=== PATIENT | male | born 1970 | race Caucasian/White ===

== ENCOUNTER 2017-05-14 17:43 | Observation (INO) | payer OTHER ==
[2017-05-14] MEDS ORDERED: methylPREDNISolone SOD SUCCI 125 MG/2 ML VIAL IV STA (17:56)
[2017-05-14] MEDS ORDERED: IPRATROPIUM 0.5 MG/2.5 ML NEBU INHALATION STA (17:56)
[2017-05-14] MEDS ORDERED: ALBUTEROL NEBULIZED 2.5 MG/3 ML INHALATION STA (17:56)
[2017-05-14] MEDS ORDERED: SODIUM CHLORIDE 0.9% 1,000 ML IV STA ×2 (17:56)
--- NOTE | 2017-05-14 18:00 | ED ---
General Adult HPI - General Chief complaint: Shortness of Breath Stated complaint: ASTHMA Time Seen by Provider: 05/14/17 17:53 Source: patient, family, RN notes reviewed, old records reviewed Mode of arrival: wheelchair Limitations: no limitations - History of Present Illness Initial comments: 46-year-old male with past medical history asthma presents with 12 hour history of cough. Patient has had worsening cough and dyspnea throughout the day today. He states yesterday he was fine. He is also had myalgias and fever. Patient has known sick contact with patient with influenza B. Denies any vomiting or diarrhea. Denies runny nose or sore throat. Denies any chest pain. - Related Data Home Medications Medication Instructions Recorded Confirmed Atorvastatin [Lipitor] 10 mg PO HS 07/16/15 05/14/17 HYDROcodone/APAP 10-325MG [Galt 1 tab PO BID PRN 05/14/17 05/14/17 10-325] Unknown Inhaler 1 puff INHALATION DIRECTED PRN 05/14/17 05/14/17 guaiFENesin [Mucinex] 600 mg PO BID PRN 05/14/17 05/14/17 Allergies Allergy/AdvReac Type Severity Reaction Status Date / Time No Known Allergies Allergy Verified 05/14/17 18:30 Review of Systems ROS Statement: Those systems with pertinent positive or pertinent negative responses have been documented in the HPI. ROS Other: All systems not noted in ROS Statement are negative. Past Medical History Past Medical History: Asthma, Hyperlipidemia Additional Past Medical History / Comment(s): chronic back pain History of Any Multi-Drug Resistant Organisms: None Reported Past Surgical History: Back Surgery, Cholecystectomy, Orthopedic Surgery Additional Past Surgical History / Comment(s): back 4 screws/2 rods, left rotator cuff, sinus sx Additional Past Anesthesia/Blood Transfusion Reaction / Comment(s): states "takes a long time to wake up" Past Psychological History: No Psychological Hx Reported Smoking Status: Former smoker Past Alcohol Use History: None Reported Past Drug Use History: None Reported - Past Family History Mother Family Medical History: Unable to Obtain Additional Family Medical History / Comment(s): PT ADOPTED General Exam Limitations: no limitations General appearance: alert, in no apparent distress Head exam: Present: atraumatic, normocephalic Eye exam: Present: normal appearance, PERRL ENT exam: Present: mucous membranes dry Neck exam: Present: normal inspection. Absent: tenderness, meningismus Respiratory exam: Present: wheezes, decreased breath sounds, prolonged expiratory. Absent: accessory muscle use Cardiovascular Exam: Present: normal rhythm, tachycardia GI/Abdominal exam: Present: soft. Absent: distended, tenderness Extremities exam: Present: normal inspection, full ROM, normal capillary refill. Absent: pedal edema Back exam: Present: normal inspection Neurological exam: Present: alert, oriented X3, CN II-XII intact. Absent: motor sensory deficit Psychiatric exam: Present: normal affect, normal mood Skin exam: Present: warm, dry, intact Course Vital Signs 05/14/17 05/14/17 05/14/17 17:46 18:04 18:10 Temperature 101.3 F H 101.9 F H Pulse Rate 130 H 112 H 111 H Respiratory 24 16 Rate Blood Pressure 150/81 121/83 O2 Sat by Pulse 98 96 Oximetry 05/14/17 05/14/17 05/14/17 18:26 18:54 20:05 Temperature 98.0 F 98.6 F Pulse Rate 108 H 108 H 100 Respiratory 16 16 Rate Blood Pressure 133/72 120/75 O2 Sat by Pulse 94 L 95 Oximetry EKG Findings - EKG Comments: EKG Findings:: EKG shows sinus tachycardia, ventricular rate 119, WV interval 154, castration 80, QTC 436, no acute signs of ischemia. Medical Decision Making - Medical Decision Making 46-year-old presenting with cough and dyspnea and fever. On examination patient has decreased air entry, and end expiratory wheeze. He does have history of asthma. He is also tachycardic and febrile. White blood cell count normal 7.9, hemoglobin stable 15.7, R to the normal limits, troponin is negative , influenza negative. Chest x-ray shows left lower lobe pneumonia. Patient did have recent car ride in atraumatic right lower extremity pain, therefore CT angiography is obtained. CT angiography is negative for pulmonary embolism Patient has persistent cough and dyspnea. Oxygen saturation in the low 90s on room air. He will be admitted for further treatment of asthma exacerbation, community acquired pneumonia. - Lab Data Result diagrams: 05/14/17 17:50 05/14/17 17:50 Lab Results 05/14/17 05/14/17 05/14/17 Range/Units 17:50 17:50 17:50 WBC 7.9 (3.8-10.6) k/uL RBC 5.46 (4.30-5.90) m/uL Hgb 15.7 (13.0-17.5) gm/dL Hct 46.4 (39.0-53.0) % MCV 85.0 (80.0-100.0) fL MCH 28.7 (25.0-35.0) pg MCHC 33.8 (31.0-37.0) g/dL RDW 14.4 (11.5-15.5) % Plt Count 234 (150-450) k/uL Neutrophils % 80 % Lymphocytes % 10 % Monocytes % 7 % Eosinophils % 1 % Basophils % 0 % Neutrophils # 6.3 (1.3-7.7) k/uL Lymphocytes # 0.8 L (1.0-4.8) k/uL Monocytes # 0.6 (0-1.0) k/uL Eosinophils # 0.1 (0-0.7) k/uL Basophils # 0.0 (0-0.2) k/uL PT (9.0-12.0) sec INR (<1.2) APTT (22.0-30.0) sec Sodium 143 (137-145) mmol/L Potassium 4.3 (3.5-5.1) mmol/L Chloride 107 (98-107) mmol/L Carbon Dioxide 23 (22-30) mmol/L Anion Gap 13 mmol/L BUN 15 (9-20) mg/dL Creatinine 1.00 (0.66-1.25) mg/dL Est GFR (MDRD) Af Amer >60 (>60 ml/min/1.73 sqM) Est GFR (MDRD) Non-Af >60 (>60 ml/min/1.73 sqM) Glucose 102 H (74-99) mg/dL Calcium 10.1 (8.4-10.2) mg/dL Magnesium 2.0 (1.6-2.3) mg/dL Total Bilirubin 0.6 (0.2-1.3) mg/dL AST 30 (17-59) U/L ALT 59 (21-72) U/L Alkaline Phosphatase 69 (38-126) U/L Total Creatine Kinase 79 (55-170) U/L CK-MB (CK-2) 0.4 (0.0-2.4) ng/mL CK-MB (CK-2) Rel Index 0.5 Troponin I <0.012 (0.000-0.034) ng/mL Total Protein 7.5 (6.3-8.2) g/dL Albumin 4.6 (3.5-5.0) g/dL Influenza Type A RNA (Not Detectd) Influenza Type B (PCR) (Not Detectd) 05/14/17 05/14/17 Range/Units 17:50 17:50 WBC (3.8-10.6) k/uL RBC (4.30-5.90) m/uL Hgb (13.0-17.5) gm/dL Hct (39.0-53.0) % MCV (80.0-100.0) fL MCH (25.0-35.0) pg MCHC (31.0-37.0) g/dL RDW (11.5-15.5) % Plt Count (150-450) k/uL Neutrophils % % Lymphocytes % % Monocytes % % Eosinophils % % Basophils % % Neutrophils # (1.3-7.7) k/uL Lymphocytes # (1.0-4.8) k/uL Monocytes # (0-1.0) k/uL Eosinophils # (0-0.7) k/uL Basophils # (0-0.2) k/uL PT 9.8 (9.0-12.0) sec INR 1.0 (<1.2) APTT 22.1 (22.0-30.0) sec Sodium (137-145) mmol/L Potassium (3.5-5.1) mmol/L Chloride (98-107) mmol/L Carbon Dioxide (22-30) mmol/L Anion Gap mmol/L BUN (9-20) mg/dL Creatinine (0.66-1.25) mg/dL Est GFR (MDRD) Af Amer (>60 ml/min/1.73 sqM) Est GFR (MDRD) Non-Af (>60 ml/min/1.73 sqM) Glucose (74-99) mg/dL Calcium (8.4-10.2) mg/dL Magnesium (1.6-2.3) mg/dL Total Bilirubin (0.2-1.3) mg/dL AST (17-59) U/L ALT (21-72) U/L Alkaline Phosphatase (38-126) U/L Total Creatine Kinase (55-170) U/L CK-MB (CK-2) (0.0-2.4) ng/mL CK-MB (CK-2) Rel Index Troponin I (0.000-0.034) ng/mL Total Protein (6.3-8.2) g/dL Albumin (3.5-5.0) g/dL Influenza Type A RNA Not Detected (Not Detectd) Influenza Type B (PCR) Not Detected (Not Detectd) Disposition Clinical Impression: Community acquired pneumonia, Asthma with exacerbation Disposition: ADMITTED IP TO THIS [facility] Condition: Stable Referrals: Obdulio Sanchez DO [Primary Care Provider] - 1-2 days Decision to Admit Reason: Admit from EC Decision Date: 05/14/17 Decision Time: 21:02
[2017-05-14] MEDS ORDERED: ACETAMINOPHEN TAB 500 MG TAB PO STA (18:08)
[2017-05-14 18:24] LABS: Partial Thromboplastin Time 22.1 sec (22.0-30.0); Prothrombin Time 9.8 sec (9.0-12.0)
[2017-05-14 18:29] LABS: ALT 59 U/L (21-72); AST 30 U/L (17-59); Albumin 4.6 g/dL (3.5-5.0); Alkaline Phosphatase 69 U/L (38-126); Anion Gap 13 mmol/L; Blood Urea Nitrogen 15 mg/dL (9-20); Calcium 10.1 mg/dL (8.4-10.2); Carbon Dioxide 23 mmol/L (22-30); Chloride 107 mmol/L (98-107); Glucose 102 mg/dL (74-99); Potassium 4.3 mmol/L (3.5-5.1); Sodium 143 mmol/L (137-145); Total Bilirubin 0.6 mg/dL (0.2-1.3); Total Protein 7.5 g/dL (6.3-8.2)
[2017-05-14 18:30] LABS: Basophils % (A) 0 %; Eosinophils # (A) 0.1 k/uL (0-0.7); Eosinophils % (A) 1 %; HCT 46.4 % (39.0-53.0); HGB 15.7 gm/dL (13.0-17.5); Lymphocytes # (A) 0.8 k/uL (1.0-4.8); Lymphocytes % (A) 10 %; MCH 28.7 pg (25.0-35.0); MCHC 33.8 g/dL (31.0-37.0); Mean Platelet Volume 7.1; Monocytes # (A) 0.6 k/uL (0-1.0); Monocytes % (A) 7 %; Neutrophils # (A) 6.3 k/uL (1.3-7.7); Neutrophils % (A) 80 %; Platelet Count 234 k/uL (150-450); RBC 5.46 m/uL (4.30-5.90); RDW 14.4 % (11.5-15.5); WBC 7.9 k/uL (3.8-10.6)
[2017-05-14 18:43] LABS: Creatine Kinase 79 U/L (55-170)
--- NOTE | 2017-05-14 18:52 | XR ---
EXAMINATION TYPE: XR chest 2V DATE OF EXAM: 05/14/2017 COMPARISON: 07/17/2015 INDICATION: Difficulty breathing TECHNIQUE: Frontal and lateral views of the chest are obtained. FINDINGS: The heart size is normal. The pulmonary vasculature is normal. There is some subtle increased linear opacity at the left base most likely subsegmental atelectasis. Lung mike otherwise appear clear.. IMPRESSION: 1. Minimal subsegmental plate atelectasis left lung base
[2017-05-14] MEDS ORDERED: cefTRIAXone IN SWFI 1,000 MG/10 ML SYRINGE IVP STA (18:59)
[2017-05-14] MEDS ORDERED: RX INFO: IV CONTRAST WAS GIVEN 1 EACH MISC MISCELLANE PRN (18:59)
[2017-05-14 19:24] LABS: Creatine Kinase MB 0.4 ng/mL (0.0-2.4); Troponin I <0.012 ng/mL (0.000-0.034)
[2017-05-14] MEDS ORDERED: AZITHROMYCIN 500 MG in SODIUM CHLORIDE 0.9% 250 ML IVPB STA (20:50)
--- NOTE | 2017-05-14 20:52 | CT ---
CT CHEST FOR PULMONARY EMBOLISM. EXAMINATION TYPE: CT angio chest DATE OF EXAM: 05/14/2017 INDICATION: Trouble breathing, asthma CT DLP: 609.8 mGycm, Automated exposure control for dose reduction was used. CONTRAST: Patient injected with 100 mL of Omnipaque 350. COMPARISON: NONE TECHNIQUE: CT of the chest is performed on a spiral scan at 2 mm thick sections. Study is performed with intravenous contrast timed for evaluation for pulmonary embolism. This will limit additional po rtions of the evaluation. 3-D MIP images reconstructed by the technologist are reviewed on the compu ter in the coronal and sagittal planes. Contrast administration is limited. Smaller peripheral pulmon fidel emboli may not be visualized. FINDINGS: No persistent filling defects are evident to suggest an acute pulmonary embolism. There is shotty scattered lymph nodes within the mediastinum. No enlarged lymphadenopathy is evident. The ascending aorta diameter at the level of the main pulmonary artery is 3.3 cm. The main pulmona ry artery diameter at the bifurcation is 2.8 cm. Minimal subsegmental atelectasis is within the dependent lung bases. Limited CT section through the upper abdomen are unremarkable. IMPRESSIONS: 1. No acute pulmonary embolism.
[2017-05-14] MEDS ORDERED: IPRATROPIUM-ALBUTEROL 3 ML NEB INHALATION PRN (20:57)
[2017-05-14] MEDS ORDERED: ALBUTEROL NEBULIZED 2.5 MG/3 ML INHALATION PRN (20:59)
[2017-05-14] MEDS ORDERED: guaiFENesin 600 MG TABLET.ER PO PRN (23:16)
[2017-05-14 23:58] VITALS: BMI 32.5
[2017-05-15] MEDS: ATORVASTATIN 10 MG TAB PO SCH ×2 (00:09→20:22)
[2017-05-15] MEDS: IPRATROPIUM-ALBUTEROL 3 ML NEB INHALATION SCH ×3 (07:08→16:28)
[2017-05-15] MEDS: predniSONE 20 MG TAB PO SCH (07:58)
[2017-05-15] MEDS: ENOXAPARIN 40 MG/0.4 ML SYRINGE SQ SCH (07:59)
[2017-05-15] MEDS: AZITHROMYCIN 500 MG in SODIUM CHLORIDE 0.9% 250 ML IVPB SCH (07:59)
[2017-05-15] MEDS: cefTRIAXone IN SWFI 1,000 MG/10 ML SYRINGE IVP SCH (11:48)
--- NOTE | 2017-05-15 17:43 | HP ---
HISTORY AND PHYSICAL DATE OF ADMISSION: May 14, 2017. PRESENT COMPLAINT: Cough, wheezing. HISTORY OF PRESENTING COMPLAINT: A very pleasant 46-year-old patient here with his , patient of Dr. Sanchez. Has had asthma since his childhood with only occasional attacks. Other chronic stable medical conditions include hyperlipidemia, chronic back pain. Woke up yesterday morning started having bouts of cough, wheezing, some cold sweats, also chills and brought to the ER. Appetite became run down, achiness. Influenza A was ruled out. Still having bouts of coughing, wheezing. Therefore, admitted for the same. Denies any sputum production. REVIEW OF SYSTEMS: Constitutional: Weak and tired. Febrile. HEENT none. Respiratory as above. Cardiovascular none. Gastrointestinal: Occasional heartburn. Genitourinary none. Musculoskeletal none. Dermatologic, hematologic and lymphatics none. Psychiatry none. PAST MEDICAL HISTORY: Asthma, hyperlipidemia, chronic back pain. PAST SURGICAL HISTORY: Back surgery, cholecystectomy, back surgery with screws and rods. Left rotator cuff surgery, sinus surgery. 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 Smoked half a pack a day for 20 years, stopped 2 years ago. . FAMILY HISTORY: Patient is adopted. HOME MEDICATIONS: 1. ProAir p.r.n. 2. Mucinex 600 mg b.i.d. p.r.n. 3. [place] 10 1 tab b.i.d. p.r.n. 4. Lipitor 10 mg q.h.s. ALLERGIES: None. PHYSICAL EXAMINATION: Vital signs on presentation: Temperature 101.3, pulse 130. Respirations 24, blood pressure 140/81, pulse ox 98% on room air. General appearance: Well built, BMI 32.5, sitting up, not in distress. Eyes: Pupils are equal. Conjunctivae normal. HEENT: Oral cavity normal. Neck JVD not raised. Mass not palpable. Respiratory effort increased. Lungs decreased breath sounds. Expiratory wheezing. Cardiovascular 1st and second sounds normal. No edema. ABDOMEN: Soft, nontender. Liver and spleen not palpable. Lymphatics: No lymph nodes palpable in the neck and axilla. PSYCHIATRY: Alert and oriented x3. Mood and affect normal. Neurological: Pupils equal. Cranial nerves grossly intact. Power and sensation grossly intact. INVESTIGATION: White count 7.9, hemoglobin 15.7, 0.8. White count 4.3, BUN and creatinine is normal. Influenza A and B negative. Chest x-ray some atelectasis. CTA chest, no pulmonary embolism. ASSESSMENT: 1. Acute exacerbation of intermittent asthma, likely from viral tracheobronchitis causing sepsis like picture on presentation. 2. Hyperlipidemia. 3. Chronic low back pain. 4. Obesity BMI 32.5. PLAN: Patient will be put on albuterol nebulizer, Pulmicort, IV Solu-Medrol. The patient also got nasal congestion quite a bit. Will add Claritin-D for decongestant. Hold off any antibiotics. Care was discussed with the patient and at the bedside. Copy to Dr. Sanchez. BRIDGET / BLANCAN: [id number] /
[2017-05-15] MEDS: LORATADINE-PSEUDOEPH 5-120 MG 1 EACH TAB.ER.12H PO SCH (20:22)
[2017-05-15] MEDS: HYDROcodone/APAP 10-325MG 1 EACH TAB PO PRN (20:25)
[2017-05-15] MEDS: BUDESONIDE 1 MG/2 ML NEBU INHALATION SCH (20:36)
[2017-05-15] MEDS: ALBUTEROL NEBULIZED 2.5 MG/3 ML INHALATION SCH ×2 (20:36→20:37)
[2017-05-15] MEDS ORDERED: ALBUTEROL NEBULIZED 2.5 MG/3 ML INHALATION PRN (20:50)
[2017-05-15] MEDS ORDERED: MELATONIN 5 MG TABLET PO SCH (21:00)
[2017-05-16] MEDS: HYDROcodone/APAP 10-325MG 1 EACH TAB PO PRN (07:14)
[2017-05-16 08:06] VITALS: RESP 18
[2017-05-16] MEDS: ENOXAPARIN 40 MG/0.4 ML SYRINGE SQ SCH (08:14)
[2017-05-16] MEDS: LORATADINE-PSEUDOEPH 5-120 MG 1 EACH TAB.ER.12H PO SCH (08:14)
[2017-05-16] MEDS: cefTRIAXone IN SWFI 1,000 MG/10 ML SYRINGE IVP SCH (08:14)
[2017-05-16] MEDS: predniSONE 20 MG TAB PO SCH (08:14)
[2017-05-16] MEDS: AZITHROMYCIN 500 MG in SODIUM CHLORIDE 0.9% 250 ML IVPB SCH (08:18)
[2017-05-16] MEDS: ALBUTEROL NEBULIZED 2.5 MG/3 ML INHALATION SCH ×3 (08:30→15:21)
[2017-05-16] MEDS: BUDESONIDE 1 MG/2 ML NEBU INHALATION SCH (08:30)
[2017-05-16 16:38] VITALS: BP 129/60; PULSE 106; TEMP 99.1
[2017-05-17] MEDS ORDERED: AZITHROMYCIN 500 MG TAB PO SCH (09:00)
== END 2017-05-16 18:35 | disposition home or self-care (01) ==
LOC: EC 17:43 → 3OBS 20:59 → 3SUR 05-15 19:42 → 3OBS 05-16 07:33
PROVIDERS: ADMIT Hospitalist; ATTEND Hospitalist
DX: J45.21 Mild intermittent asthma with (acute) exacerbation (principal); R09.81 Nasal congestion; E78.5 Hyperlipidemia, unspecified; G89.29 Other chronic pain; M54.5 Low back pain; E66.9 Obesity, unspecified; Z68.32 Body mass index [BMI] 32.0-32.9, adult; Z20.828 Contact with and (suspected) exposure to other viral communicable diseases; Z79.899 Other long term (current) drug therapy; Z87.891 Personal history of nicotine dependence
CPT/HCPCS: 36415; 71046; 71275; 80053; 82550; 82553; 83735; 84484; 85025; 85610; 85730; 87502; 93005; 94640; 96361; 96365; 96366; 96368; 96372; 96375; 96376; 99285

== ENCOUNTER → 2022-06-25 | Outpatient (CLI) | payer OTHER ==
--- NOTE | 2022-06-26 08:09 | MR ---
EXAMINATION TYPE: MR shoulder RT wo con DATE OF EXAM: 06/25/2022 COMPARISON: Outside radiographs and 421 HISTORY: 51-year-old male M1 9.011, Right shoulder pain, with limited range of motion. TECHNIQUE: Multiplanar, multisequence imaging of the right shoulder is performed without contrast. FINDINGS: There is some heterogeneity of the subscapularis tendon but there are majority appears intact. Possible short segment split within the intracapsular portion of long head biceps tendon, coronal malinda ge 12. The extracapsular portion remains appropriately situated along the bicipital groove with mild to moderate tenosynovial fluid. Some heterogeneous signal at the footprint of the infraspinatus tendon and bursal sided fraying just below the acromion of the mid to posterior supraspinatus tendon. Possible shallow bursal sided tear m easuring 1.3 cm long and 1.1 cm AP. No high-grade partial or full-thickness tear is identified. No atrophy of the rotator cuff musculature. There is moderate degenerative joint space narrowing with marginal spurring and capsular distortion a t the acromioclavicular joint. No significant mass effect onto the underlying cuff. There is a small glenohumeral joint effusion though with a moderate synovitis. Moderate overall gleno humeral joint osteoarthrosis though with relatively severe cartilage loss along the posterior half of the glenoid with extensive subchondral cystic change. Possible full-thickness cartilage loss also al lula the superior aspect of the humeral head articular surface. The glenoid labrum is diffusely degenerative and torn circumferentially. No Hill-Sachs deformity or os acromiale. No suspicious bone marrow replacement. IMPRESSION: 1. At least moderate glenohumeral joint OA though with more severe areas of full-thickness cartilage loss along the posterior half of the glenoid and superior aspect of the humeral head articular surfac e. Small joint effusion but with moderate chronic synovitis. 2. Diffusely degenerative and circumferentially torn glenoid labrum. 3. A short segment split tear appears to extend into the intracapsular portion of the long head bicep s tendon. [id number] tenosynovitis along the bicipital groove. 4. Mild rotator cuff tendinosis. There may be a shallow 1.3 x 1.1 cm bursal sided tear of the mid to posterior supraspinatus tendon just below the acromion versus some focal fraying. No high-grade parti al or full-thickness rotator cuff tear. No muscle atrophy. 5. Moderate AC joint OA. No significant impingement onto the underlying cuff.
== END | disposition home or self-care (01) ==
LOC: RADMRIMAIN 14:08
PROVIDERS: ATTEND Orthopaedic Surgery
DX: M19.011 Primary osteoarthritis, right shoulder (principal); M75.41 Impingement syndrome of right shoulder; M67.813 Other specified disorders of tendon, right shoulder

== ENCOUNTER → 2022-12-08 | Outpatient (CLI) | payer OTHER ==
[2022-12-08 17:42] LABS: Appearance,Urine Clear (Clear); Bilirubin,Urine Negative (Negative); Blood,Urine Negative (Negative); Color,Urine Colorless; Glucose,Urine (UA) Negative (Negative); Ketones,Urine Negative (Negative); Leukocyte Esterase,Urine Negative (Negative); Nitrite,Urine Negative (Negative); Protein,Urine Negative (Negative); Urobilinogen,Urine <2.0 mg/dL (<2.0)
[2022-12-08 20:38] LABS: HCT 48.1 % (39.6-50.0); HGB 15.3 d/dL (13.0-17.0); MCH 29.9 pg (27.0-32.0); MCHC 31.8 d/dL (32.0-37.0); MCV 94.1 FL (80.0-97.0); Mean Platelet Volume 9.8 FL (9.5-12.2); NRBC Per 100 WBC 0 X 10*3/uL (0.00-0.01); Platelet Count 299 X 10*3/uL (140-440); RBC 5.11 X 10*6/uL (4.40-5.60); RDW 14.6 % (11.5-14.5); WBC 7.99 X 10*3/uL (4.50-10.00)
[2022-12-09 02:33] LABS: ALT 43 U/L (10-49); AST 25 U/L (14-35); Albumin 4.5 d/dL (3.8-4.9); Albumin/Globulin Ratio 2.14 Ratio (1.60-3.17); Alkaline Phosphatase 77 U/L (41-126); BUN/Creat Ratio 14.67 Ratio (12.00-20.00); Blood Urea Nitrogen 13.2 mg/dL (9.0-27.0); Calcium 9.8 mg/dL (8.7-10.3); Carbon Dioxide 25.7 mmol/L (21.6-31.8); Chloride 106 mmol/L (96-109); Globulin 2.1 d/dL (1.6-3.3); Glucose 84 mg/dL (70-110); Magnesium 2.3 mg/dL (1.5-2.4); Potassium 4.3 mmol/L (3.5-5.5); Sodium 143 mmol/L (135-145); Total Bilirubin <0.2 mg/dL (0.3-1.2); Total Protein 6.6 d/dL (6.2-8.2)
== END | disposition home or self-care (01) ==
LOC: LABWHC1 15:14
PROVIDERS: ATTEND Family Medicine
DX: I10 Essential (primary) hypertension (principal); E66.9 Obesity, unspecified
CPT/HCPCS: 36415; 80053; 81003; 82306; 83735; 84153; 84443; 85027

== ENCOUNTER → 2022-12-20 | Outpatient (CLI) | payer OTHER ==
[2022-12-20 21:35] LABS: Blood Urea Nitrogen 10.1 mg/dL (9.0-27.0); Calcium 10.2 mg/dL (8.7-10.3); Carbon Dioxide 25.1 mmol/L (21.6-31.8); Chloride 105 mmol/L (96-109); Glucose 89 mg/dL (70-110); Potassium 4.2 mmol/L (3.5-5.5); Sodium 144 mmol/L (135-145)
== END | disposition home or self-care (01) ==
LOC: LABWHC1 15:40
PROVIDERS: ATTEND Family Medicine
DX: I10 Essential (primary) hypertension (principal)
CPT/HCPCS: 36415; 80048

== ENCOUNTER → 2023-01-12 | Outpatient (CLI) | payer OTHER ==
--- NOTE | 2023-02-07 13:57 | P.HOLTER ---
Sinus mechanism with heart rates ranging from 65-130 beats a minute average 87 beats a minute occasional premature beats no bradycardia arrhythmias No tachyarrhythmias
--- NOTE | 2023-02-09 08:07 | HM ---
Sinus mechanism with heart rates ranging from 65-130 beats a minute average 87 beats a minute occasional premature beats no bradycardia arrhythmias No tachyarrhythmias Additional CC's: Obdulio GAVIRIA
== END | disposition home or self-care (01) ==
LOC: RADECHMAIN 07:33
PROVIDERS: ATTEND Family Medicine
DX: I49.40 Unspecified premature depolarization (principal); R00.0 Tachycardia, unspecified
CPT/HCPCS: 93225; 93226

== ENCOUNTER → 2023-09-20 | Outpatient (CLI) | payer OTHER ==
[2023-09-20 14:57] LABS: Basophils # (A) 0.03 X 10*3/uL (0.00-0.10); Basophils % (A) 0.4 %; Eosinophils # (A) 0.03 X 10*3/uL (0.04-0.35); Eosinophils % (A) 0.4 %; HCT 49.7 % (39.6-50.0); HGB 16.2 g/dL (13.0-17.0); Lymphocytes # (A) 2.75 X 10*3/uL (0.90-5.00); Lymphocytes % (A) 39.8 %; MCH 29.8 pg (27.0-32.0); MCHC 32.6 g/dL (32.0-37.0); MCV 91.5 FL (80.0-97.0); Mean Platelet Volume 9.6 FL (9.5-12.2); Monocytes # (A) 0.62 X 10*3/uL (0.20-1.00); NRBC Per 100 WBC 0 X 10*3/uL (0.00-0.01); Neutrophils # (A) 3.45 X 10*3/uL (1.80-7.70); Platelet Count 309 X 10*3/uL (140-440); RBC 5.43 X 10*6/uL (4.40-5.60); RDW 13.9 % (11.5-14.5); WBC 6.91 X 10*3/uL (4.50-10.00)
[2023-09-20 15:15] LABS: ALT 47 U/L (10-49); AST 20 U/L (14-35); Blood Urea Nitrogen 10.3 mg/dL (9.0-27.0); Calcium 9.9 mg/dL (8.7-10.3); Carbon Dioxide 26.4 mmol/L (21.6-31.8); Chloride 106 mmol/L (96-109); Chol/HDL Ratio 3.93 Ratio; Glucose 102 mg/dL (70-110); Potassium 4.4 mmol/L (3.5-5.5); Prostate Specific Antigen 0.97 ng/mL (0.000-3.500); Sodium 145 mmol/L (135-145)
[2023-09-20 16:47] LABS: Appearance,Urine Clear (Clear); Bilirubin,Urine Negative (Negative); Blood,Urine Negative (Negative); Color,Urine Yellow (Yellow); Ketones,Urine Trace (Negative); Nitrite,Urine Negative (Negative); Specific Gravity,Urine 1.019 (1.001-1.030); Urobilinogen,Urine 0.2 E.U./DL
== END | disposition home or self-care (01) ==
LOC: LABWHC1 08:02
PROVIDERS: ATTEND Family Medicine
DX: Z00.00 Encounter for general adult medical examination without abnormal findings (principal)
CPT/HCPCS: 36415; 80048; 80061; 81003; 84153; 84450; 84460; 85025

== ENCOUNTER → 2024-04-13 | Outpatient (CLI) | payer OTHER ==
[2024-04-13 16:56] LABS: Appearance,Urine Clear (Clear); Bilirubin,Urine Negative (Negative); Blood,Urine Negative (Negative); Color,Urine Colorless; Glucose,Urine (UA) Negative (Negative); Ketones,Urine 1+ (Negative); Leukocyte Esterase,Urine Negative (Negative); Nitrite,Urine Negative (Negative); PH, Urine 5.5 (5.0-8.0); Protein,Urine Negative (Negative); Specific Gravity,Urine 1.022 (1.001-1.035); Urobilinogen,Urine <2.0 mg/dL (<2.0)
[2024-04-13 20:15] LABS: HCT 47.1 % (39.6-50.0); HGB 15.5 g/dL (13.0-17.0); MCH 30.3 pg (27.0-32.0); MCHC 32.9 g/dL (32.0-37.0); MCV 92.2 FL (80.0-97.0); Mean Platelet Volume 10.6 FL (9.5-12.2); NRBC Per 100 WBC 0 X 10*3/uL (0.00-0.01); Platelet Count 273 X 10*3/uL (140-440); RBC 5.11 X 10*6/uL (4.40-5.60); RDW 12.3 % (11.5-14.5); WBC 6.89 X 10*3/uL (4.50-10.00)
[2024-04-13 20:21] LABS: ALT 40 U/L (10-49); AST 26 U/L (14-35); Albumin 4.4 g/dL (3.8-4.9); Alkaline Phosphatase 79 U/L (41-126); BUN/Creat Ratio 25.43 Ratio (12.00-20.00); Blood Urea Nitrogen 17.8 mg/dL (9.0-27.0); Calcium 9.9 mg/dL (8.7-10.3); Carbon Dioxide 22.9 mmol/L (21.6-31.8); Chloride 104 mmol/L (96-109); Globulin 2.2 g/dL (1.6-3.3); Glucose 113 mg/dL (70-110); Potassium 3.7 mmol/L (3.5-5.5); Prostate Specific Antigen 1.29 ng/mL (0.000-3.500); Sodium 141 mmol/L (135-145); Total Bilirubin 0.3 mg/dL (0.3-1.2); Total Protein 6.6 g/dL (6.2-8.2)
== END | disposition home or self-care (01) ==
LOC: LABWHC1 15:35
PROVIDERS: ATTEND Family Medicine
DX: Z00.00 Encounter for general adult medical examination without abnormal findings (principal); Z12.5 Encounter for screening for malignant neoplasm of prostate; I10 Essential (primary) hypertension
CPT/HCPCS: 36415; 80053; 81003; 82306; 83036; 84153; 85027

== ENCOUNTER 2024-08-22 07:41 | Day surgery (SDC) | payer OTHER ==
[2024-08-20 12:28] VITALS: BMI 26.8
[2024-08-22 08:06] VITALS: RESP 16; TEMP 97.6
[2024-08-22] MEDS: LACTATED RINGERS 1,000 ML IV SCH (08:07)
[2024-08-22] MEDS ORDERED: PROPOFOL 10 MG/ML 20 ML VIAL IV ONE (08:45)
[2024-08-22] MEDS: LACTATED RINGERS 1,000 ML IV ONE ×2 (08:48→09:07)
--- NOTE | 2024-08-22 08:52 | P.GSHP ---
History of Present Illness H&P Date: 08/22/24 CHIEF COMPLAINT: Colon screen HISTORY OF PRESENT ILLNESS: The patient is a 53-year-old male who presents for colon screen. Lower endoscopy was offered for further evaluation and management. PAST MEDICAL HISTORY: Please see list. PAST SURGICAL HISTORY: Please see list. MEDICATIONS: Please see list. ALLERGIES: Please see list. SOCIAL HISTORY: No illicit drug use FAMILY HISTORY: No reports of Crohn disease or ulcerative colitis. REVIEW OF ORGAN SYSTEMS: CONSTITUTIONAL: No reports of fevers or chills. PHYSICAL EXAM: VITAL SIGNS: Stable GENERAL: Well-developed pleasant in no acute distress. HEENT: No scleral icterus. Extraocular movements grossly intact. Moist buccal mucosa. NECK: Supple without lymphadenopathy. CHEST: Unlabored respirations. Equal bilateral excursions. CARDIOVASCULAR: Regular rate and rhythm. Distal 2+ pulses. ABDOMEN: Soft, nontender, nondistended. MUSCULOSKELETAL: No clubbing, cyanosis, or edema. ASSESSMENT: 1. Colon screen. PLAN: 1. Recommend proceeding with a lower endoscopy Past Medical History Past Medical History: Asthma, Hyperlipidemia, Hypertension Additional Past Medical History / Comment(s): chronic back pain, "Resting heart rate is fast." History of Any Multi-Drug Resistant Organisms: None Reported Past Surgical History: Adenoidectomy, Back Surgery, Cholecystectomy, Orthopedic Surgery, Tonsillectomy Additional Past Surgical History / Comment(s): back 4 screws/2 rods, left rotator cuff, sinus sx. lt hand carpal tunnel surgery. Lt cubital tunnes surgery. Additional Past Anesthesia/Blood Transfusion Reaction / Comment(s): states "takes a long time to wake up" Smoking Status: Former smoker - Past Family History Mother Family Medical History: No Reported History Additional Family Medical History / Comment(s): PT ADOPTED Medications and Allergies Home Medications Medication Instructions Recorded Confirmed Type Albuterol Sulfate [Proair Hfa] 1 - 2 puff INHALATION RT-Q6H PRN 05/15/17 5 History Aleve(Unknown Dose) 1 dose PO DIRECTED PRN 08/20/24 08/20/24 History Multivitamin(Unknown Dose) 1 dose PO QAM 08/20/24 08/20/24 History Valsartan [Diovan] 160 mg PO QAM 08/20/24 08/20/24 History Allergies Allergy/AdvReac Type Severity Reaction Status Date / Time No Known Allergies Allergy Verified 08/22/24 08:01 Surgical - Exam Vital Signs Temp Pulse Resp BP Pulse Ox 97.6 F 72 16 130/88 96 08/22/24 08:04 08/22/24 08:04 08/22/24 08:04 08/22/24 08:04 08/22/24 08:04
--- NOTE | 2024-08-22 09:08 | P.PCN ---
Date of Procedure: 08/22/24 Description of Procedure: PREOPERATIVE DIAGNOSIS: Colonoscopy screening POSTOPERATIVE DIAGNOSIS: Tubular adenoma transverse colon Sigmoid diverticulosis OPERATION: Colonoscopy to the ileocecal valve and appendiceal orifice, cecum Colonoscopy with hot snare polypectomy SURGEON: Rosenda Guevara MD. ANESTHESIA: MAC. INDICATIONS: The patient is an 53-year-old male who presents for colon cancer screening. Benefits and risks were described and informed consent was obtained. DESCRIPTION OF PROCEDURE: The patient had undergone Suprep. The patient had been brought into the operating room and laid in the left lateral decubitus position. After adequate intravenous sedation, the rectum was examined with 2% lidocaine jelly. The prostate was unremarkable. No external hemorrhoids were encountered. The rectal tone was within normal limits. No lesions were palpated in the rectal vault. An Olympus colonoscope was advanced until the cecum, ileocecal valve and appendiceal orifice were clearly viewed. The prep was fair. Sigmoid diverticulosis was encountered. Colonic polyps were found and removed. No evidence of focal colitis was found. Retroflexion of the scope demonstrated grade 1 internal hemorrhoids without active bleeding or inflammation. The colon was desufflated. The patient had tolerated the procedure well. Withdrawal time was over 6 minutes. FINDINGS: Aronchick preparation quality scale 2+ (1-5) Internal hemorrhoids, grade 1 No external hemorrhoids No arteriovenous malformations. Sigmoid diverticulosis, moderate Removal of 1 polyps: - Snare polypectomy distal transverse colon, 5 mm tubulovillous adenoma No focal colitis. RECOMMENDATIONS: Repeat colonoscopy 3 years, 2027 Plan - Discharge Summary Discharge Rx Participant: No New Discharge Prescriptions: Continue Albuterol Sulfate [Proair Hfa] 1 - 2 puff INHALATION RT-Q6H PRN PRN Reason: sob Valsartan [Diovan] 160 mg PO QAM Multivitamin(Unknown Dose) 1 dose PO QAM Aleve(Unknown Dose) 1 dose PO DIRECTED PRN PRN Reason: Pain Discharge Medication List Albuterol Sulfate [Proair Hfa] 1 - 2 puff INHALATION RT-Q6H PRN 05/15/17 [History] Aleve(Unknown Dose) 1 dose PO DIRECTED PRN 08/20/24 [History] Multivitamin(Unknown Dose) 1 dose PO QAM 08/20/24 [History] Valsartan [Diovan] 160 mg PO QAM 08/20/24 [History] Follow up Appointment(s)/Referral(s): Rosenda Guevara MD [STAFF PHYSICIAN] - As Needed Patient Instructions/Handouts: Colorectal Polyps (GEN), Diverticulosis (GEN) Activity/Diet/Wound Care/Special Instructions: Repeat colonoscopy 3 years, 2027 Discharge Disposition: HOME SELF-CARE
[2024-08-22 09:31] VITALS: BP 146/92; PULSE 68
== END 2024-08-22 09:47 | disposition home or self-care (01) ==
LOC: ORWHC2ENDO 07:41
PROVIDERS: ATTEND Surgery Plastic and Reconstructive Surgery
DX: Z12.11 Encounter for screening for malignant neoplasm of colon (principal); D12.3 Benign neoplasm of transverse colon; K57.30 Diverticulosis of large intestine without perforation or abscess without bleeding; K64.0 First degree hemorrhoids; I10 Essential (primary) hypertension; E78.5 Hyperlipidemia, unspecified; J45.909 Unspecified asthma, uncomplicated; G89.29 Other chronic pain; Z79.899 Other long term (current) drug therapy; Z87.891 Personal history of nicotine dependence
CPT/HCPCS: 88305; 45385; J2704